=== PATIENT | male | born 1990 | race African-American/Black ===

== ENCOUNTER 2020-07-09 02:04 | Emergency (ER) | payer OTHER ==
[2020-07-09 03:55] LABS: BASOPHIL 0.5 % (0-2); EOSINOPHIL 15.6 % (0-5); HGB 16.1 g/dl (13.2-18.0); LYMPHOCYTE 40.8 % (15-48); MCH 29.7 pg (25.0-31.0); MCHC 32.9 g/dL (32.0-36.0); MCV 90.4 fL (78.0-100.0); MONOCYTE 9.2 % (0-12); MPV 10.5 fL (6.0-9.5); NEUTROPHIL 33.5 % (41-80); NRBC 0; PLT 215 K/uL (150-400); RBC 5.42 M/uL (4.70-6.00); WBC 5.6 K/uL (4.0-10.5)
[2020-07-09 03:57] LABS: BILIRUBIN NEGATIVE (NEGATIVE); BLOOD NEGATIVE Ery/uL (NEGATIVE); CLARITY CLEAR (CLEAR); COLOR YELLOW (YELLOW); GLUCOSE (U) NORMAL (NORMAL); LEUKOCYTES NEGATIVE Leu/uL (NEGATIVE); NITRITE NEGATIVE (NEGATIVE); PROTEIN NEGATIVE (NEGATIVE); SPECIFIC GRAVITY 1.025 (1.001-1.030); UROBILINOGEN 0.2 mg/dL (0.2-1.0)
[2020-07-09 04:03] LABS: ALBUMIN 3.7 g/dL (3.4-5.0); BILIRUBIN - TOTAL 0.5 mg/dL (0.2-1.0); BUN/CREAT RATIO (CALC) 14.3 RATIO; CREATININE 0.98 mg/dL (0.67-1.17); POTASSIUM 4.1 mmol/L (3.5-5.1); TOTAL PROTEIN 7.7 g/dL (6.4-8.2)
[2020-07-11 14:09] LABS: CHLAMYDIA TRACHOMATIS, NAA Negative (Negative); NEISSERIA GONORRHOEAE, NAA Negative (Negative)
[2020-09-01] MEDS ORDERED: ANTIBIOTIC PO (10:28)
[2020-09-04] MEDS ORDERED: BACTRIM DS TAB1 EACH PO (08:20)
== END 2020-07-09 06:25 | disposition home or self-care (01) ==
LOC: FER 02:04
PROVIDERS: Emergency Medicine Emergency Medical Services; Nurse Practitioner
DX: R30.0 Dysuria (principal); H73.899 Other specified disorders of tympanic membrane, unspecified ear; K63.89 Other specified diseases of intestine; F17.210 Nicotine dependence, cigarettes, uncomplicated; Z86.19 Personal history of other infectious and parasitic diseases
CPT/HCPCS: 36415; 80053; 81003; 85025; 86593; 87491; 87591; 96372; J0561; J0696

== ENCOUNTER → 2020-09-04 | Day surgery (SDC) | payer OTHER ==
[~2020-09-04] MED LIST: ANTIBIOTIC PO; BACTRIM DS TAB1 EACH PO
== END | disposition home or self-care (01) ==
LOC: FAS 07:30
DX: K52.9 Noninfective gastroenteritis and colitis, unspecified (principal); F17.210 Nicotine dependence, cigarettes, uncomplicated; Z20.822 Contact with and (suspected) exposure to COVID-19
CPT/HCPCS: J2704; J7120

== ENCOUNTER 2022-02-26 05:26 | Emergency (ER) | payer OTHER ==
[2022-02-27 10:07] LABS: HIV AB/P24 AG SCREEN Non Reactive (Non Reactive)
== END 2022-02-26 06:20 | disposition home or self-care (01) ==
LOC: FER 05:26
PROVIDERS: Emergency Medicine
DX: A53.9 Syphilis, unspecified (principal); F17.200 Nicotine dependence, unspecified, uncomplicated
CPT/HCPCS: 86803; 87389; 96372; 99282; J0561; J0696